=== PATIENT | male | born 1960 | race Caucasian/White ===

== ENCOUNTER → 2016-11-25 | Outpatient (CLI) | payer OTHER ==
[~2016-11-25] VITALS: Ht 177.8 cm; Wt 97.5 kg
[~2016-11-25] MED LIST: ASPI32ECTA PO; GABA-279 PO; LIDO5DIS36 TD; LIDOCAINE 2% INJ 100 MG/5 ML SDV (FOR ANES.) As Ordered ONE; METO50TA2 PO; NAPR500T2 PO; NITR0.4S14 SL; PRAV40TA2 PO; PROPOFOL 200 MG/20 ML VIAL As Ordered ONE; RANI1TAB38 PO; ZETI10TA2 PO
--- NOTE | 2016-11-25 11:44 | ROOR ---
Patient Name: Roger Arce Procedure Date: 11/25/2016 11:16 AM Date of : 1960 Age: 56 Room: [facility] Gender: Male Note Status: Finalized Procedure: Colonoscopy Indications: Abnormal MRI of the GI tract, Incidental finding on recent MRI: possible 8 mm sigmoid polyp. Providers: Zheng DELEON MD Referring MD: CRISTÓBAL AMBROCIO MD Requesting Provider: Medicines: Monitored Anesthesia Care Complications: No immediate complications. Procedure: Pre-Anesthesia Assessment: - The heart rate, respiratory rate, oxygen saturations, blood pressure, adequacy of pulmonary ventilation, and response to care were monitored throughout the procedure. The Colonoscope was introduced through the anus and advanced to the cecum, identified by appendiceal orifice and ileocecal valve. The colonoscopy was performed without difficulty. The patient tolerated the procedure well. The quality of the bowel preparation was good. Findings: The perianal and digital rectal examinations were normal. (Exam: Complete, Prep: Good or Excellent.) The entire examined colon appeared normal on direct and retroflexion views. Impression: - (Exam: Complete, Prep: Good or Excellent.) - The entire examined colon is normal on direct and retroflexion views. (Two passes show no evidence of any polyps) - No specimens collected. Recommendation: - Repeat colonoscopy in 5 years for surveillance based on personal history of previous adenomatous polyps. Zheng Deleon MD Zheng DELEON MD 11/25/2016 11:44:03 AM This report has been signed electronically. Number of Addenda: 0 Note Initiated On: 11/25/2016 11:16 AM Estimated Blood Loss: Estimated blood loss: none.
[2016-11-25 12:00] VITALS: BP 106/76
== END | disposition home or self-care (01) ==
LOC: M OPP 09:04
PROVIDERS: ATTEND Internal Medicine Gastroenterology
DX: R93.3 Abnormal findings on diagnostic imaging of other parts of digestive tract (principal); I25.10 Atherosclerotic heart disease of native coronary artery without angina pectoris; I25.2 Old myocardial infarction; I10 Essential (primary) hypertension; E78.00 Pure hypercholesterolemia, unspecified; Z95.5 Presence of coronary angioplasty implant and graft; R06.83 Snoring; M19.90 Unspecified osteoarthritis, unspecified site; Z87.891 Personal history of nicotine dependence; Z79.82 Long term (current) use of aspirin; Z79.899 Other long term (current) drug therapy; Z86.010 Personal history of colon polyps